=== PATIENT | male | born 1965 | race Caucasian/White ===

== ENCOUNTER 2018-10-07 01:03 | Emergency (ER) | payer OTHER ==
[2018-10-07 01:10] VITALS: TEMP 98.1
--- NOTE | 2018-10-07 02:04 | ED ---
Male Urogenital HPI - General Chief complaint: Urogenital Stated complaint: Male Time Seen by Provider: 10/07/18 01:11 Source: patient, RN notes reviewed, old records reviewed Mode of arrival: ambulatory Limitations: no limitations - History of Present Illness Initial comments: This is a 53-year-old male the ER for evaluation of severe testicular pain. Patient states he was followed up with urology had severe swelling and pain in his testicle today. Denies new injury. No abdominal pain. No dysuria, no blood in his urine MD Complaint: testicle pain, testicle swelling -: days(s) Location: right testicle, left testicle Radiation: none Severity: moderate Severity scale (1-10): 5 Quality: aching Consistency: constant Improves with: none Worsens with: none Reports: swelling - Related Data Allergies Allergy/AdvReac Type Severity Reaction Status Date / Time No Known Allergies Allergy Verified 10/07/18 01:10 Review of Systems ROS Statement: Those systems with pertinent positive or pertinent negative responses have been documented in the HPI. ROS Other: All systems not noted in ROS Statement are negative. Past Medical History Past Medical History: No Reported History History of Any Multi-Drug Resistant Organisms: None Reported Past Surgical History: No Surgical Hx Reported Past Psychological History: No Psychological Hx Reported Smoking Status: Never smoker Past Alcohol Use History: None Reported Past Drug Use History: None Reported General Exam Limitations: no limitations Course Vital Signs 10/07/18 10/07/18 01:07 01:45 Temperature 98.1 F Pulse Rate 89 Respiratory 16 18 Rate Blood Pressure 147/93 O2 Sat by Pulse 97 Oximetry - Reevaluation(s) Reevaluation #1: 10/07/18 02:55 Medical record is reviewed Medical Decision Making - Medical Decision Making 53 male the ER for evaluation of several urinary swelling scrotal swelling. Patient has significant hydrocele. Follow-up with urology for definitive therapy - Lab Data Lab Results 10/07/18 Range/Units 02:15 Urine Color Yellow Urine Appearance Clear (Clear) Urine pH 6.0 (5.0-8.0) Ur Specific [place] 1.013 (1.001-1.035) Urine Protein Negative (Negative) Urine Glucose (UA) Negative (Negative) Urine Ketones Negative (Negative) Urine Blood Negative (Negative) Urine Nitrite Negative (Negative) Urine Bilirubin Negative (Negative) Urine Urobilinogen <2.0 (<2.0) mg/dL Ur Leukocyte Esterase Negative (Negative) - Radiology Data Radiology results: report reviewed (Ultrasound scrotum show significant hydrocele), image reviewed Disposition Clinical Impression: Hydrocele Disposition: HOME SELF-CARE Condition: Good Instructions: Hydrocele (ED) Is patient prescribed a controlled substance at d/c from ED?: No Referrals: Dhruv Davis MD [STAFF PHYSICIAN] - 1-2 days
--- NOTE | 2018-10-07 02:12 | US ---
EXAMINATION TYPE: US scrotum with doppler. Grayscale and color Doppler Duplex imaging performed of elmira hannon scrotum. DATE OF EXAM: 10/07/2018 COMPARISON: NONE CLINICAL HISTORY: Pain. Dog jumped up into patient's lap, left testicular pain EXAM MEASUREMENTS: TESTICLES: Right Testicle: 4.3 x 2.7 x 2.9 cm Left Testicle: 4.7 x 2.4 x 2.8 cm EPIDIDYMIS HEAD: Right Epididymis: 1.1 cm Left Epididymis: 0.9 cm Doppler performed to assess for testicular vascularity; good bilateral color flow and waveforms are s een. There is no evidence of testicular torsion. Presence of hydroceles: Yes, on the left measuring 10.9 x 8.9 x 8.8 cm Presence of varicoceles: No Multiple right sided epididymal cysts visualized, largest measuring 0.5 cm IMPRESSION: There is a very large left-sided hydrocele. This measures 11 cm in length. No testicular torsion or mass. There are multiple simple small right-sided epididymal cysts.
[2018-10-07 02:48] LABS: Appearance,Urine Clear (Clear); Bilirubin,Urine Negative (Negative); Blood,Urine Negative (Negative); Color,Urine Yellow; Glucose,Urine (UA) Negative (Negative); Ketones,Urine Negative (Negative); Leukocyte Esterase,Urine Negative (Negative); Nitrite,Urine Negative (Negative); Protein,Urine Negative (Negative); Specific Gravity,Urine 1.013 (1.001-1.035); Urobilinogen,Urine <2.0 mg/dL (<2.0)
[2018-10-07 03:26] VITALS: BP 141/100; PULSE 74; RESP 16
--- NOTE | 2018-10-08 01:51 | CDI ---
Documentation Clarification OP Dear Nolan HOLCOMB, DO Please do addendum to ED report for Physical exam Thank you, Denise Quiroz Recruiting Consultant If you have any question, Please contact manager epic at [phone] [facility]
== END 2018-10-07 03:26 | disposition home or self-care (01) ==
LOC: EC 01:03
DX: N43.3 Hydrocele, unspecified (principal)
CPT/HCPCS: 76870; 81003; 87086; 93975; 99284

== ENCOUNTER 2023-08-24 10:49 | Day surgery (SDC) | payer MEDICAID ==
[2023-08-19 13:19] VITALS: BMI 33.0
[2023-08-24] MEDS: LACTATED RINGERS 1,000 ML IV SCH ×2 (11:50→12:29)
[2023-08-24 11:57] VITALS: TEMP 97
[2023-08-24] MEDS ORDERED: PROPOFOL 10 MG/ML 20 ML VIAL IV ONE (12:30)
--- NOTE | 2023-08-24 12:47 | P.PCN ---
Date of Procedure: 08/24/23 Procedure(s) Performed: BRIEF HISTORY: Patient is a 58-year-old pleasant white male scheduled for an elective colonoscopy as a part of screening for colon cancer/positive cologuard. His dad was diagnosed with colon cancer at age 75. PROCEDURE PERFORMED: Colonoscopy with snare polypectomy. PREOPERATIVE DIAGNOSIS: Screening for colon cancer/positive cologuard/MB history of colon cancer. IV sedation per Anesthesia. PROCEDURE: After informed consent was obtained, the patient, was brought into the endoscopy unit. IV sedation was administered by Anesthesia under continuous monitoring. Digital rectal examination was normal. Initially the Olympus CF-160 flexible video colonoscope was then inserted in the rectum, gradually advanced into the cecum without any difficulty. Careful examination was performed as the scope was gradually being withdrawn. Ileocecal valve and the appendiceal orifice were visualized and appeared normal. Prep was excellent. Mucosa of the cecum, ascending colon, transverse colon, descending colon, sigmoid colon, and rectum appeared normal. The rectum there was a 3 mm and 7 mm polyp removed by snare polypectomy Retroflexion was performed in the rectum and no lesions were seen. The patient tolerated the procedure well. IMPRESSION: 3 mm and 7 mm rectal polyp status post polypectomy Rest of the colon appeared normal RECOMMENDATIONS: Findings of this examination were discussed with the patient as well as his family. He was advised to follow with the biopsy results. Recommend repeat screening coloscopy in 5 years from now because of history of polyps and family history of colon cancer
[2023-08-24 13:12] VITALS: BP 127/82; PULSE 66; RESP 18
== END 2023-08-24 13:20 | disposition home or self-care (01) ==
LOC: ORWHC2ENDO 10:49
PROVIDERS: ATTEND Internal Medicine Gastroenterology
DX: D12.8 Benign neoplasm of rectum (principal); Z80.0 Family history of malignant neoplasm of digestive organs; Z79.899 Other long term (current) drug therapy
CPT/HCPCS: 88305; 45385; J2704